=== PATIENT | male | born 1965 | race American Indian/Alaskan Native ===

== ENCOUNTER 2019-12-14 10:20 | Outpatient (CLI) | payer BC ==
[2019-12-14 11:24] LABS: BUN/Creatinine Ratio 17; Blood Urea Nitrogen 17 mg/dL (9-20)
[2019-12-14 11:25] LABS: Alanine Aminotransferase 21 units/L (7-56); Albumin 4.6 g/dL (3.9-5); Calcium 9.6 mg/dL (8.4-10.2); Chol/HDL Ratio 4.55 %; HDL Cholesterol 45 mg/dL (40-59); LDL Cholesterol,Direct 133 mg/dL (50-130)
== END 2019-12-14 10:21 | disposition home or self-care (01) ==
LOC: LAB 10:20
PROVIDERS: ATTEND Internal Medicine
DX: E11.65 Type 2 diabetes mellitus with hyperglycemia (principal); R53.83 Other fatigue; E78.2 Mixed hyperlipidemia
CPT/HCPCS: 36415; 80053; 80061

== ENCOUNTER 2020-03-12 18:26 | Emergency (ER) | payer BC ==
[2020-03-12 18:29] VITALS: BP 145/98
[2020-03-12] MEDS ORDERED: FLUORESCEIN 1 MG STRIP OP ONE (18:37)
[2020-03-12] MEDS ORDERED: TETRACAINE 0.5% OPHTH SOLN 4ML OU ONE (18:37)
--- NOTE | 2020-03-12 18:52 | Emergency Department Report ---
ED Eye Problem HPI - General Chief complaint: Eye Problems Stated complaint: EYE IRRA Time Seen by Provider: 03/12/20 18:32 Source: patient Mode of arrival: Ambulatory Limitations: No Limitations - History of Present Illness Initial comments: Patient is a 54-year-old male presents emergency room with complaints of left eye irritation and redness that began 3 weeks ago. He states that the drainage has increased and sometimes it is watery or mucus. He states he has noticed some crusting. He states that he has some mild irritation in the right eye but not very much redness. He denies getting anything into the eye. He denies any contact lens use. He denies anyone else with the same symptoms. He denies any vision changes. No allergies to medications. He states that he used [id number] eyedrops without much relief. - Related Data Previous Rx's Medication Instructions Recorded Last Taken Type Ketotifen Fumarate 1 drop OP Q12HR 7 Days #1 bottle 03/12/20 Unknown Rx Polymyxin B Sulf/Trimethoprim 1 drop OP Q3HR 7 Days #1 bottle 03/12/20 Unknown Rx [Polytrim Eye Drops] Allergies Allergy/AdvReac Type Severity Reaction Status Date / Time No Known Allergies Allergy Unverified 03/12/20 18:28 ED Review of Systems ROS: Stated complaint: EYE IRRA Other details as noted in HPI Comment: All other systems reviewed and negative ED Past Medical Hx - Past Medical History Previous Medical History?: Yes Hx Hypertension: Yes - Medications Home Medications: Home Medications Medication Instructions Recorded Confirmed Last Taken Type Ketotifen Fumarate 1 drop OP Q12HR 7 Days #1 bottle 03/12/20 Unknown Rx Polymyxin B Sulf/Trimethoprim 1 drop OP Q3HR 7 Days #1 bottle 03/12/20 Unknown Rx [Polytrim Eye Drops] ED Physical Exam - General Limitations: No Limitations General appearance: alert, in no apparent distress - Head Head exam: Present: atraumatic, normocephalic - Eye Eye exam: Present: PERRL, EOMI, conjunctival injection (left, mild amount of mucus drainage), other (fluoroscein stain with mo lamp: no fluroscein uptake, no signs of foreign body). Absent: periorbital swelling, periorbital tenderness Pupils: Present: normal accommodation - ENT ENT exam: Present: mucous membranes moist - Neurological Exam Neurological exam: Present: alert, oriented X3 - Psychiatric Psychiatric exam: Present: normal affect, normal mood - Skin Skin exam: Present: warm, dry, intact ED Course Vital Signs 03/12/20 18:28 Temperature 98.5 F Pulse Rate 103 H Respiratory 18 Rate Blood Pressure 145/98 [Right] O2 Sat by Pulse 97 Oximetry ED Medical Decision Making - Medical Decision Making Patient is a 54-year-old male presents emergency room with complaints of left eye irritation and redness that began 3 weeks ago. He states that the drainage has increased and sometimes it is watery or mucus. He states he has noticed some crusting. He states that he has some mild irritation in the right eye but not very much redness. He denies getting anything into the eye. He denies any contact lens use. He denies anyone else with the same symptoms. He denies any vision changes. No allergies to medications. He states that he used [id number] eyedrops without much relief. VSS. on exam: fluoroscein stain with mo lamp: no fluroscein uptake, no signs of foreign body, left conjunctival injection, mild amount of mucus drainage, PERRL, EOMI. examination appears most consistent with conjunctivitis. Patient given prescription for antibiotic eyedrops and zatidor eye drops. Patient be referred to ophthalmology. Advised patient Please use medication as prescribed. Please separate using the eyedrops by at least an hour. Follow-up with an real estate management specialist. Return to emergency room for any new or worsening symptoms. - Differential Diagnosis conjunctivitis, corneal abrasion, foreign body, iritis Critical care attestation.: If time is entered above; I have spent that time in minutes in the direct care of this critically ill patient, excluding procedure time. ED Disposition Clinical Impression: Conjunctivitis Qualifiers: Conjunctivitis type: acute Acute conjunctivitis type: unspecified Laterality: left Qualified Code(s): H10.32 - Unspecified acute conjunctivitis, left eye Disposition: DC-01 TO HOME OR SELFCARE Is pt being admited?: No Does the pt Need Aspirin: No Condition: Stable Instructions: Conjunctivitis (ED) Additional Instructions: Please use medication as prescribed. Please separate using the eyedrops by at least an hour. Follow-up with an real estate management specialist. Return to emergency room for any new or worsening symptoms. Prescriptions: Ketotifen Fumarate 1 drop OP Q12HR 7 Days #1 bottle Polymyxin B Sulf/Trimethoprim [Polytrim Eye Drops] 1 drop OP Q3HR 7 Days #1 bottle Referrals: MODESTA ALCANTAR MD [Staff Physician] - 2-3 Days [facility] [Provider Group] - 2-3 Days Time of Disposition: 18:49 Print Language: CHINESE
== END 2020-03-12 19:00 | disposition home or self-care (01) ==
LOC: ED 18:26
DX: H10.9 Unspecified conjunctivitis (principal); I10 Essential (primary) hypertension; Z79.899 Other long term (current) drug therapy
CPT/HCPCS: 99282